=== PATIENT | female | born 1950 | race Caucasian/White ===

== ENCOUNTER 2025-01-30 15:44 | Emergency (ER) | payer OTHER ==
[~2025-01-30] VITALS: Ht 167.6 cm; Wt 82.0 kg
[2025-01-30 15:46] VITALS: BP 129/76; PULSE 84; RESP 16; TEMP 98.3; O2SAT 98
== END 2025-01-30 16:50 | disposition left against medical advice (07) ==
LOC: ER 15:44
DX: M25.511 Pain in right shoulder (principal); V89.2XXA Person injured in unspecified motor-vehicle accident, traffic, initial encounter; Y93.89 Activity, other specified; Y92.89 Other specified places as the place of occurrence of the external cause; Y99.8 Other external cause status
CPT/HCPCS: 99281